=== PATIENT | female | born 1950 | race Caucasian/White ===

== ENCOUNTER 2023-07-18 08:31 | Day surgery (SDC) | payer MEDICARE, BC ==
[~2023-07-18 08:31] MED LIST: Lactated Ringers 1,000 ML IV SCH
[2023-07-18] MEDS: Lactated Ringers 1,000 ML IV SCH (09:03)
[2023-07-18] MEDS ORDERED: fentaNYL 100 MCG/2 ML SDV ONE (09:59)
[2023-07-18] MEDS ORDERED: Propofol 200 MG/20 ML SDV ONE (09:59)
== END 2023-07-18 12:30 | disposition home or self-care (01) ==
LOC: JP.SDS 08:31
PROVIDERS: ATTEND Family Medicine
DX: K64.8 Other hemorrhoids (principal); Z88.6 Allergy status to analgesic agent
CPT/HCPCS: 45380; J2704; J3010; J7120